=== PATIENT | female | born 1995 ===

== ENCOUNTER 2016-11-30 10:31 | Emergency (ER) | payer OTHER ==
--- NOTE | 2016-11-30 12:53 | UC ---
Dental HPI - HPI Summary HPI Summary: TENDERNESS AND REDNESS NEAR WHERE WISDOM TOOTH HAD BEEN REMOVED A MONTH AGO AT LEFT LOWER JAW (#17, #18). NO FEVER NO DISCHARGE. NO PAIN WITH MOVEMENT OF JAW. NO EAR ACHE. NO SORE THROAT. - History of Current Complaint Chief Complaint: UCGeneralIllness Stated Complaint: DENTAL COMPLAINT Time Seen by Provider: 11/30/16 11:53 Hx Obtained From: Patient Hx Last Menstrual Period: 11/12/16 Onset/Duration: Gradual Onset, Lasting Days, Still Present Severity: Mild Pain Intensity: 0 Pain Scale Used: 0-10 Numeric Aggravating: Chewing Related History: Previous Dental Care on Same Tooth, Swelling - Allergies/Home Medications Allergies/Adverse Reactions: Allergies Allergy/AdvReac Type Severity Reaction Status Date / Time Gluten Allergy GI Upset Uncoded 11/30/16 11:32 Home Medications: Home Medications Reclipsen 11/30/16 [History] PMH/Surg Hx/FS Hx/Imm Hx Previously Healthy: Yes - Surgical History Surgical History: Yes Surgery Procedure, Year, and Place: wisdom teeth - Family History Known Family History: Negative: Diabetes - Social History Occupation: Student Lives: With Family Alcohol Use: Weekly Substance Use Type: None Smoking Status (MU): Never Smoked Tobacco Review of Systems Constitutional: Negative Skin: Negative Eyes: Negative ENT: Dental Pain Respiratory: Negative Cardiovascular: Negative Gastrointestinal: Negative Genitourinary: Negative Motor: Negative Neurovascular: Negative Musculoskeletal: Negative Neurological: Negative Psychological: Negative All Other Systems Reviewed And Are Negative: Yes Physical Exam Triage Information Reviewed: Yes Appearance: Well-Appearing, No Pain Distress, Well-Nourished Vital Signs: Initial Vital Signs Temp 98.4 F 11/30/16 11:27 Pulse 66 11/30/16 11:27 Resp 18 11/30/16 11:27 BP 95/51 11/30/16 11:27 Pulse Ox 100 11/30/16 11:27 Eye Exam: Normal Eyes: Positive: Conjunctiva Clear ENT Exam: Normal ENT: Positive: Normal ENT inspection, Hearing grossly normal, Pharynx normal, TMs normal Dental: Positive: Percussion Tenderness @ - 17,18, Cellulitis @ - 17,18 Neck exam: Normal Neck: Positive: Supple, Nontender, No Lymphadenopathy Respiratory Exam: Normal Respiratory: Positive: Chest non-tender, Lungs clear, Normal breath sounds, No respiratory distress, No accessory muscle use Cardiovascular Exam: Normal Cardiovascular: Positive: RRR, No Murmur, Pulses Normal Abdominal Exam: Normal Abdomen Description: Positive: Nontender, No Organomegaly Musculoskeletal Exam: Normal Musculoskeletal: Positive: Strength Intact, ROM Intact Neurological Exam: Normal Neurological: Positive: Alert, Muscle Tone Normal Psychological Exam: Normal Skin Exam: Normal Dental Complaint Course/Dx - Differential Dx/Diagnosis Differential Diagnosis/Dx: Dental Abscess, Dental Caries Provider Diagnoses: GINGIVAL CELLULITIS AT #17, #18 Discharge - Discharge Plan Condition: Stable Disposition: HOME Prescriptions: Amoxicillin/Clavulanate TAB* [Augmentin TAB 875*] 875 mg PO BID #20 tab Patient Education Materials: Dental Abscess (ED), Toothache (ED) Referrals: [facility] [Outside] Images Dental: 1 - PAIN HERE
== END 2016-11-30 12:20 | disposition home or self-care (01) ==
LOC: UCEAST 10:31
DX: K12.2 Cellulitis and abscess of mouth (principal)
CPT/HCPCS: 99202; G0463